=== PATIENT | male | born 1945 | race Caucasian/White ===

== ENCOUNTER 2020-01-02 01:47 | Inpatient (IN) | payer OTHER, MEDICARE ==
[2020-01-02] MEDS ORDERED: SODIUM CHLORIDE 0.9% 1,000 ML IV STA (01:53)
--- NOTE | 2020-01-02 01:56 | ED ---
Neuro HPI - General Stated Complaint: possible stroke Time Seen by Provider: 01/02/20 01:49 - History of Present Illness Is the patient presenting with stroke symptoms?: Yes Last Known Well Date: 01/01/20 Last Known Well Time: 12:00 Onset/Timin -: hour(s) Initial Comments: Maycol 74-year-old male with history of hypertension hyperlipidemia who presents the ER today via private vehicle for evaluation of a possible stroke. History is obtained from the patient and his . They report that around noon yesterday the patient began having some weakness in his left arm and leg, these symptoms seem to come and go throughout the afternoon. He got worse at 4:30 PM but then resolved again. Patient with to bed with minimum symptoms but woke up around 1 AM with weakness of his left arm and leg and having difficulty speaking. His noted he had some facial droop they were concerned he had a stroke so they brought him to the ER for evaluation. - Related Data Allergies/Adverse Reactions: Allergies Allergy/AdvReac Type Severity Reaction Status Date / Time No Known Allergies Allergy Verified 01/02/20 02:06 Review of Systems ROS Statement: Those systems with pertinent positive or pertinent negative responses have been documented in the HPI. ROS Other: All systems not noted in ROS Statement are negative. General Exam - General Exam Comments Initial Comments: Physical Exam GENERAL: Elderly gentleman appears to have had a stroke HENT: Normocephalic, Atraumatic. LEFT FACIAL DROOP EYES: PERRL, EOMI PULMONARY: Unlabored respirations. No audible rales rhonchi or wheezing was noted. CARDIOVASCULAR: Bradycardia, regular ABDOMEN: Soft and nontender with normal bowel sounds. SKIN: Skin is clear with no lesions or rashes and otherwise unremarkable. : Deferred NEUROLOGIC: Patient is alert and oriented x3 LEFT FACIAL DROOP LEFT ARM AND LEG WEAKNESS DYSARTHRIA MUSCULOSKELETAL: Weakness of left arm and leg No injury PSYCHIATRIC: Appropriate situational anxiety Stroke MDM - Lab Data Result diagrams: 01/02/20 02:01 01/02/20 02:01 Lab Results 01/02/20 01/02/20 01/02/20 Range/Units 02:01 02:01 02:01 WBC 9.3 (3.8-10.6) k/uL RBC 4.88 (4.30-5.90) m/uL Hgb 14.1 (13.0-17.5) gm/dL Hct 42.5 (39.0-53.0) % MCV 87.1 (80.0-100.0) fL MCH 28.9 (25.0-35.0) pg MCHC 33.2 (31.0-37.0) g/dL RDW 13.2 (11.5-15.5) % Plt Count 155 (150-450) k/uL Neutrophils % 76 % Lymphocytes % 15 % Monocytes % 6 % Eosinophils % 2 % Basophils % 1 % Neutrophils # 7.0 (1.3-7.7) k/uL Lymphocytes # 1.4 (1.0-4.8) k/uL Monocytes # 0.5 (0-1.0) k/uL Eosinophils # 0.2 (0-0.7) k/uL Basophils # 0.0 (0-0.2) k/uL PT 10.2 (9.0-12.0) sec INR 1.0 (<1.2) APTT 20.8 L (22.0-30.0) sec Sodium 139 (137-145) mmol/L Potassium 3.8 (3.5-5.1) mmol/L Chloride 106 (98-107) mmol/L Carbon Dioxide 26 (22-30) mmol/L Anion Gap 7 mmol/L BUN 10 (9-20) mg/dL Creatinine 0.81 (0.66-1.25) mg/dL Est GFR (CKD-EPI)AfAm >90 (>60 ml/min/1.73 sqM) Est GFR (CKD-EPI)NonAf 88 (>60 ml/min/1.73 sqM) Glucose 179 H (74-99) mg/dL Calcium 8.9 (8.4-10.2) mg/dL Total Bilirubin 0.8 (0.2-1.3) mg/dL AST 33 (17-59) U/L ALT 20 (4-49) U/L Alkaline Phosphatase 73 (38-126) U/L Troponin I (0.000-0.034) ng/mL Total Protein 7.4 (6.3-8.2) g/dL Albumin 4.4 (3.5-5.0) g/dL 01/02/20 Range/Units 02:01 WBC (3.8-10.6) k/uL RBC (4.30-5.90) m/uL Hgb (13.0-17.5) gm/dL Hct (39.0-53.0) % MCV (80.0-100.0) fL MCH (25.0-35.0) pg MCHC (31.0-37.0) g/dL RDW (11.5-15.5) % Plt Count (150-450) k/uL Neutrophils % % Lymphocytes % % Monocytes % % Eosinophils % % Basophils % % Neutrophils # (1.3-7.7) k/uL Lymphocytes # (1.0-4.8) k/uL Monocytes # (0-1.0) k/uL Eosinophils # (0-0.7) k/uL Basophils # (0-0.2) k/uL PT (9.0-12.0) sec INR (<1.2) APTT (22.0-30.0) sec Sodium (137-145) mmol/L Potassium (3.5-5.1) mmol/L Chloride (98-107) mmol/L Carbon Dioxide (22-30) mmol/L Anion Gap mmol/L BUN (9-20) mg/dL Creatinine (0.66-1.25) mg/dL Est GFR (CKD-EPI)AfAm (>60 ml/min/1.73 sqM) Est GFR (CKD-EPI)NonAf (>60 ml/min/1.73 sqM) Glucose (74-99) mg/dL Calcium (8.4-10.2) mg/dL Total Bilirubin (0.2-1.3) mg/dL AST (17-59) U/L ALT (4-49) U/L Alkaline Phosphatase (38-126) U/L Troponin I <0.012 (0.000-0.034) ng/mL Total Protein (6.3-8.2) g/dL Albumin (3.5-5.0) g/dL - NIH Stroke Scale 1a. Level of Consciousness: (0) alert 1b. LOC Questions: (0) answers correctly 1c. LOC Commands: (0) performs tasks correctly 2. Best Gaze: (0) normal 3. Visual: (0) no visual loss 4. Facial Palsy: (2) partial paralysis 5a. Motor Arm Left: (2) some gravity effort 5b. Motor Arm Right: (0) no drift 6a. Motor Leg Left: (2) some gravity effort 6b. Motor Leg Right: (0) no drift 7. Limb Ataxia: (0) absent 8. Sensory: (1) mild/moderate sensory loss 9. Best Language: (0) no aphasia 10. Dysarthria: (1) mild/moderate dysarthria 11. Extinction/Inattention: (0) no abnormality - Thrombolytic Inclusion/Exclusion Thrombolytic Exclusion Criteria: Symptom Onset > 4.5 Hours - Medical Decision Making CODE STROKE - NOT IN TPA WINDOW NIH 8 labs and EKG obtained Patient to computed tomography scan Patient care discussed with interventional neurology Dr. Merino will review CT and CTA Dr Merino back stated that he reviewed the CT and CTA there is no large vessel occlusions or indication for intervention. Patient is out of the window for TPA. He recommends aspirin Plavix Lipitor, patient will need an MRI, echo and neurology follow-up. Considering the hospital does not have neurology licensed massage practitioner this week I did attempt to transfer the patient to [facility] however was called back again by Dr. Angelique win that this patient does not require neuro evaluation emergently, con sidering that this is a pandemic time patient does not need to be transferred. Patient to be admitted to internal medicine with outpatient neurology follow-up. Course Vital Signs 01/02/20 01/02/20 01/02/20 02:00 02:15 02:45 Temperature 97.3 F L Pulse Rate 49 L 53 L 58 L Respiratory 16 16 16 Rate Blood Pressure 200/100 182/88 193/102 O2 Sat by Pulse 98 95 96 Oximetry 01/02/20 03:00 Temperature Pulse Rate 55 L Respiratory 16 Rate Blood Pressure 182/87 O2 Sat by Pulse 94 L Oximetry Critical Care Time Critical Care Time: Yes Total Critical Care Time: 30 Critical Care Time: Critical Care Time 30 Critical care time was exclusive of separately billable procedures and treating other patients and teaching time. Critical care was necessary to treat or prevent imminent or life-threatening deterioration. Given the critical condition in which the patient arrived, the patient was immediately assessed by myself and the nurse, and cardiac monitoring initiated due to the potential for rapid decompensation of the patient's clinical condition. During the course of the patients stay, I spent a considerable amount of time at the bedside performing serial re-evaluations of the patient's hemodynamic and clinical status because of the recognized potential threat to life or limb in this condition. I then had a chance to review not only all of the available current laboratory and radiographic studies obtained today, but I also reviewed old records available to me at the time. Additionally, any ancillary information available including land manager records were reviewed. Sequential vital signs were obtained. Disposition Clinical Impression: Cerebrovascular accident (CVA), HTN (hypertension) Disposition: OTHER INSTITUTION NOT DEFINED Condition: Serious Is patient prescribed a controlled substance at d/c from ED?: No
[2020-01-02 02:15] LABS: Basophils % (A) 1 %; Eosinophils # (A) 0.2 k/uL (0-0.7); Eosinophils % (A) 2 %; HCT 42.5 % (39.0-53.0); HGB 14.1 gm/dL (13.0-17.5); Lymphocytes # (A) 1.4 k/uL (1.0-4.8); Lymphocytes % (A) 15 %; MCH 28.9 pg (25.0-35.0); MCHC 33.2 g/dL (31.0-37.0); MCV 87.1 fL (80.0-100.0); Mean Platelet Volume 7.6; Monocytes # (A) 0.5 k/uL (0-1.0); Monocytes % (A) 6 %; Neutrophils % (A) 76 %; Platelet Count 155 k/uL (150-450); RBC 4.88 m/uL (4.30-5.90); RDW 13.2 % (11.5-15.5); WBC 9.3 k/uL (3.8-10.6)
[2020-01-02 02:19] LABS: ALT 20 U/L (4-49); AST 33 U/L (17-59); African American GFR (CKD) >90 (>60 ml/min/1.73 sqM); Albumin 4.4 g/dL (3.5-5.0); Alkaline Phosphatase 73 U/L (38-126); Anion Gap 7 mmol/L; Blood Urea Nitrogen 10 mg/dL (9-20); Calcium 8.9 mg/dL (8.4-10.2); Carbon Dioxide 26 mmol/L (22-30); Chloride 106 mmol/L (98-107); Glucose 179 mg/dL (74-99); Non-African American GFR(CKD) 88 (>60 ml/min/1.73 sqM); Potassium 3.8 mmol/L (3.5-5.1); Sodium 139 mmol/L (137-145); Total Bilirubin 0.8 mg/dL (0.2-1.3); Total Protein 7.4 g/dL (6.3-8.2)
[2020-01-02] MEDS ORDERED: ASPIRIN 81 MG PO STA (02:21)
[2020-01-02] MEDS ORDERED: CLOPIDOGREL 75 MG TAB PO STA ×2 (02:22→12:59)
[2020-01-02] MEDS ORDERED: ATORVASTATIN 80 MG TAB PO STA (02:22)
[2020-01-02 02:27] LABS: Prothrombin Time 10.2 sec (9.0-12.0)
[2020-01-02 02:33] LABS: Partial Thromboplastin Time 20.8 sec (22.0-30.0)
--- NOTE | 2020-01-02 02:35 | CT ---
EXAM: CT Head Without Intravenous Contrast CLINICAL HISTORY: ITS.REASON CT Reason: Neuro deficit, acute, stroke suspected TECHNIQUE: Axial computed tomography images of the head/brain without intravenous contrast. CTDI is 48.8 mGy and DLP is 1118 mGy-cm. This CT exam was performed using one or more of the following dose reduction techniques: automated exposure control, adjustment of the mA and/or kV according to patient size, and/or use of iterative reconstruction technique. COMPARISON: No relevant prior studies available. FINDINGS: Brain: No hemorrhage or mass effect. Ventricles: No hydrocephalus. Bones/joints: Unremarkable. Soft tissues: Unremarkable. Sinuses: Unremarkable. Mastoid air cells: Clear. IMPRESSION: No acute hemorrhage, hydrocephalus, or mass effect. No large infarct.
--- NOTE | 2020-01-02 02:35 | CT ---
EXAM: CT Angiography Head With Intravenous Contrast CLINICAL HISTORY: ITS.REASON CT Reason: Neuro deficit, acute, stroke suspected TECHNIQUE: Axial computed tomographic angiography images of the head with intravenous contrast. CTDI is 18.685 mGy and DLP is 205.15 mGy-cm. This CT exam was performed using one or more of the following dose reduction techniques: automated exposure control, adjustment of the mA and/or kV according to patient size, and/or use of iterative reconstruction technique. MIP reconstructed images were created and reviewed. COMPARISON: CT head 01/01/2001 FINDINGS: Right internal carotid artery: Intracranial segment is patent with no significant stenosis. No aneurysm. Right anterior cerebral artery: No occlusion or significant stenosis. No aneurysm. Right middle cerebral artery: No occlusion or significant stenosis. No aneurysm. Right posterior cerebral artery: Moderate proximal stenosis. No aneurysm. Right vertebral artery: Unremarkable. Left internal carotid artery: Intracranial segment is patent with no significant stenosis. No aneurysm. Left anterior cerebral artery: No occlusion or significant stenosis. No aneurysm. Left middle cerebral artery: No occlusion or significant stenosis. No aneurysm. Left posterior cerebral artery: Moderate proximal stenosis. No aneurysm. Left vertebral artery: Unremarkable. Basilar artery: No occlusion or significant stenosis. No aneurysm. IMPRESSION: Moderate bilateral proximal [employer] INTERN stenosis. EXAM: CT Angiography Neck With Intravenous Contrast CLINICAL HISTORY: ITS.REASON CT Reason: Neuro deficit, acute, stroke suspected TECHNIQUE: Axial computed tomographic angiography images of the neck with intravenous contrast. CTDI is 18.685 mGy and DLP is 205.15 mGy-cm. This CT exam was performed using one or more of the following dose reduction techniques: automated exposure control, adjustment of the mA and/or kV according to patient size, and/or use of iterative reconstruction technique. MIP reconstructed images were created and reviewed. COMPARISON: No relevant prior studies available. FINDINGS: VASCULATURE: Right common carotid artery: No significant stenosis. No dissection. Right internal carotid artery: Extracranial has no significant stenosis. No dissection. Right vertebral artery: No significant stenosis. No dissection. Left common carotid artery: No significant stenosis. No dissection. Left internal carotid artery: Mild narrowing of the left proximal ICA from atherosclerosis. No dissection. Left vertebral artery: No significant stenosis. No dissection. NECK: Bones/joints: No acute fracture. No dislocation. Subcentimeter nodule in the left thyroid gland. CAROTID STENOSIS REFERENCE USING NASCET CRITERIA: % ICA stenosis = (1 - narrowest ICA diameter/diameter of distal cervical ICA) x 100. Mild - <50% stenosis. Moderate - 50-69% stenosis. Severe - 70-94% stenosis. Near occlusion - 95-99% stenosis. Occluded - 100% stenosis. IMPRESSION: Mild narrowing of the left proximal ICA from atherosclerosis. Subcentimeter nodule in the left thyroid gland.
--- NOTE | 2020-01-02 02:51 | XR ---
EXAM: XR Chest, 1 View CLINICAL HISTORY: ITS.REASON XR Reason: altered mental status TECHNIQUE: Frontal view of the chest. COMPARISON: No relevant prior studies available. FINDINGS: Lungs: Slight left basilar opacity. Pleural space: No acute findings Heart: No cardiomegaly. Bones/joints: No acute findings. IMPRESSION: Slight left basilar opacity.
[2020-01-02] MEDS ORDERED: ASPIRIN 325 MG TAB PO STA (03:15)
[2020-01-02] MEDS ORDERED: ENALAPRILAT 1.25 MG/ML 1 ML VIAL IVP STA (04:02)
--- NOTE | 2020-01-02 09:24 | P.HPIM ---
History of Present Illness This is a pleasant 74 days old male with no significant past medical history, he follows up with Dr. [facility] or feel, that happened yesterday in the afternoon when he had a sudden slurred speech and inability to use his left hand around 4243, it seems to get better as he was going back to home but it happened to him again around 6:54 PM with weakness in his left upper and lower extremities with no associated headache or abnormal movements. Patient was gradually improving and currently he has no weakness in his left hand except for some tingling in his left fingers and his strength is left leg is almost resolved with very minimal subjective feeling of weakness in the left leg. Patient denies smoking, alcohol or illicit drugs Vitals showing elevated blood pressure 178/87 with bradycardia heart rate 52-56. He saturating 97% on room air and his been afebrile. Troponin is negative at less than 0.012. TSH is normal 2.1 EKG: Showed sinus bradycardia at [address]PM with no significant [address]-T changes and QTC is 448.. Chest x-ray: Slight left basilar opacity per radiologist CT of the brain: No acute process per Radiologist. CTA of the head and neck, mild bowing of the left proximal ICA and subcentimeter nodule of the left thyroid gland In the emergency room, patient received aspirin and Lipitor and Plavix. Also received some IV fluids. Neurologist has been consulted Review of Systems CONSTITUTIONAL: No fever, no malaise, no fatigue. HEENT: No recent visual problems or hearing problems. Denied any sore throat. CARDIOVASCULAR: No orthopnea, PND, no palpitations, no syncope. PULMONARY: No shortness of breath, no cough, no hemoptysis. GASTROINTESTINAL: No diarrhea, no nausea, no vomiting, no abdominal pain. Normoactive bowel sounds. NEUROLOGICAL: No headaches, no dizziness. HEMATOLOGICAL: Denies any bleeding or petechiae. GENITOURINARY: Denies any burning micturition, frequency, or urgency. MUSCULOSKELETAL/RHEUMATOLOGICAL: Denies any joint pain, swelling, or any muscle pain. ENDOCRINE: Denies any polyuria or polydipsia. Past Medical History Past Medical History: No Reported History History of Any Multi-Drug Resistant Organisms: None Reported Past Surgical History: No Surgical Hx Reported Past Psychological History: No Psychological Hx Reported Smoking Status: Former smoker Past Alcohol Use History: Rare Past Drug Use History: None Reported Medications and Allergies Home Medications Medication Instructions Recorded Confirmed Type Aspirin EC [Ecotrin Low Dose] 81 mg PO DAILY 01/02/20 01/02/20 History Carboxymethylcellulose Sodium 1 drop BOTH EYES QID PRN 01/02/20 01/02/20 History [Refresh Tears] Cholecalciferol [Vitamin D3 (25 1,000 unit PO DAILY 01/02/20 01/02/20 History Mcg = 1000 Iu)] Omeprazole 20 mg PO DAILY 01/02/20 01/02/20 History lisinopriL [Zestril] 5 mg PO DAILY 01/02/20 01/02/20 History Allergies Allergy/AdvReac Type Severity Reaction Status Date / Time No Known Allergies Allergy Verified 01/02/20 07:54 Physical Exam Vitals: Vital Signs Temp Pulse Resp BP Pulse Ox 01/02/20 06:35 97.6 F 56 L 16 178/87 97 01/02/20 06:18 98.4 F 59 L 16 176/84 98 01/02/20 05:18 98.2 F 58 L 16 185/99 96 01/02/20 04:18 52 L 16 173/102 97 01/02/20 03:18 54 L 16 185/90 96 01/02/20 03:00 55 L 16 182/87 94 L 01/02/20 02:45 58 L 16 193/102 96 01/02/20 02:15 53 L 16 182/88 95 01/02/20 02:00 97.3 F L 49 L 16 200/100 98 Intake and Output 01/01/20 01/02/20 01/02/20 22:59 06:59 14:59 Other: Weight 89 kg GENERAL: The patient is alert and oriented x3, not in any acute distress. Well developed, well nourished. HEENT: Pupils are round and equally reacting to light. EOMI. No scleral icterus. No conjunctival pallor. Normocephalic, atraumatic. No pharyngeal erythema. No thyromegaly. CARDIOVASCULAR: S1 and S2 present. No murmurs, rubs, or gallops. PULMONARY: Chest is clear to auscultation, no wheezing or crackles. ABDOMEN: Soft, nontender, nondistended, normoactive bowel sounds. No palpable organomegaly. MUSCULOSKELETAL: No joint swelling or deformity. EXTREMITIES: No cyanosis, clubbing, or pedal edema. -NEUROLOGICAL: Gross neurological examination cranial nerves are grossly intact. Motor is 5/5 in all extremities except for left upper extremity and is about 4+/5. Sensation is intact. Meningeal signs are absent SKIN: No rashes. No petechiae Results CBC & Chem 7: 01/02/20 02:01 01/02/20 02:01 Labs: Abnormal Lab Results - Last 24 Hours (Table) 01/02/20 01/02/20 Range/Units 02:01 02:01 APTT 20.8 L (22.0-30.0) sec Glucose 179 H (74-99) mg/dL Assessment and Plan Assessment: Left-sided weakness and facial droop suspicious for stroke versus TIA Permissive hypertension Plan: This is a pleasant 74 years old male who presents with possible stroke. Continue with antiplatelet therapy. Follow-up recommendation by neurologist. We'll check for PT/OT and speech evaluation. Labs and medication were reviewed.. Continue same treatment. Continue with symptomatic treatment. Resume home medication. Monitor lytes and vitals. DVT and GI prophylaxis. Further recommendations depends on the clinical course of the patient DVT prophylaxis: Subcutaneous heparin GI Prophylaxis: Pepcid PT/OT: Pending Prognosis is guarded
[2020-01-02] MEDS: ATORVASTATIN 40 MG TAB PO SCH (10:39)
[2020-01-02] MEDS: CLOPIDOGREL 75 MG TAB PO SCH ×2 (10:40→10:41)
[2020-01-02] MEDS: lisinopriL 5 MG TAB PO SCH (10:40)
--- NOTE | 2020-01-02 11:00 | ECHOF ---
Referral Reason:Thrombus - code stroke MEASUREMENTS -------- HEIGHT: 172.7 cm WEIGHT: 88.9 kg BP: IVSd: 0.9 cm (0.6 - 1.1) LVIDd: 5.1 cm (3.9 - 5.3) LVPWd: 1.2 cm (0.6 - 1.1) IVSs: 1.5 cm LVIDs: 2.9 cm LVPWs: 1.5 cm LA Diam: 4.0 cm (2.7 - 3.8) RVIDd: 2.5 cm (< 3.3) LAESV Index (A-L): 27.66 ml/m Ao Diam: 3.4 cm (2.0 - 3.7) LA Diam: 4.4 cm (2.7 - 3.8) AV Cusp: 2.0 cm (1.5 - 2.6) EPSS: 0.5 cm MV E Pete: 0.68 m/s MV DecT: 220 ms MV A Pete: 1.04 m/s MV E/A Ratio: 0.66 RAP: 5.00 mmHg RVSP: 24.79 mmHg MV EF SLOPE: 101.87 mm/s (70 - 150) MV EXCURSION: 23.95 mm (> 18.000) FINDINGS -------- Sinus rhythm. This was a technically good study. LV size, wall thickness and systolic function are normal, with an EF greater than 55%. The left eric tricular size is normal. The right ventricle is normal in size. The left atrial size is normal. The right atrial size is normal. The aortic valve is trileaflet, and appears structurally normal. No aortic stenosis or regurgitation. Mild mitral regurgitation is present. Mild tricuspid regurgitation present. Right ventricular systolic pressure is normal at < 35 mmHg. There is no pulmonic regurgitation present. The aortic root size is normal. There is no pericardial effusion. CONCLUSIONS -------- 1. LV size, wall thickness and systolic function are normal, with an EF greater than 55%. 2. The left ventricular size is normal. 3. The right ventricle is normal in size. 4. The left atrial size is normal. 5. The right atrial size is normal. 6. Mild mitral regurgitation is present. 7. Mild tricuspid regurgitation present. 8. There is no pulmonic regurgitation present. 9. The aortic root size is normal. 10. There is no pericardial effusion. INVESTOR RELATIONS DIRECTOR: April Morales RDCS
--- NOTE | 2020-01-02 13:32 | P.CNNES ---
History of Present Illness Consult date: 01/02/20 Requesting physician: Soledad Garcia Reason for Consult: Stroke code History of Present Illness: Patient is a 74-year-old right-handed male came to the hospital early this morning at around 2 AM for recurrent episodes of left hemiparesis. Patient states that his symptoms started yesterday at 4:30 PM, when he suddenly could not raise his left arm and could not form words. The symptoms would come and go, occurred about 3 times. He stayed home thinking that symptoms will go away. At 11:30 PM it came back as symptoms persisted therefore he came to the ER and arrived here at 2 AM. Vital signs on arrival was blood pressure 200/100, pulse rate 49 temperature 97.3 most recent blood pressure is 178/87. Computed tomography scan of head is negative. CTA of the head showed moderate bilateral proximal FORM [employer] P[employer]ER stenosis. CTA of the neck showed mild narrowing of the left proximal ICA from atherosclerosis. Subcentimeter nodule in the left thyroid gland. Chest x-ray showed slight left basilar opacity. EKG shows sinus bradycardia. CBC, PT/PTT and Chem-7 are normal. Hepatic panel normal. ED staff discuss with neuro intervention Dr. Thorne, who felt patient was out of the window for TPA because symptoms have been present since 4:30 PM. He was not a candidate for any intervention. Patient was recommended aspirin and Plavix Lipitor MRI, echo and a neurology evaluation. Patient does take lisinopril 5 mg, aspirin 81 mg, vitamin D and omeprazole 20 mg at home. Patient's is states that he takes aspirin 81 mg daily and is compliant with it. Patient has smoked 1-1-1/2 pack per day for 10 years, quit 40 years ago. He denies diabetes. He has hypertension for 2-3 years. Review of Systems Denies headache problem with the vision, hoarseness sore throat dysphagia. He is having slurred speech. Denies abdominal pain, nausea vomiting diarrhea. Denies shortness of breath. Denies dysuria or burning urine. Denies problem with control of bowels or bladder. Past Medical History Past Medical History: No Reported History History of Any Multi-Drug Resistant Organisms: None Reported Past Surgical History: No Surgical Hx Reported Past Psychological History: No Psychological Hx Reported Smoking Status: Former smoker Past Alcohol Use History: Rare Past Drug Use History: None Reported Medications and Allergies Home Medications Medication Instructions Recorded Confirmed Type Aspirin EC [Ecotrin Low Dose] 81 mg PO DAILY 01/02/20 01/02/20 History Carboxymethylcellulose Sodium 1 drop BOTH EYES QID PRN 01/02/20 01/02/20 History [Refresh Tears] Cholecalciferol [Vitamin D3 (25 1,000 unit PO DAILY 01/02/20 01/02/20 History Mcg = 1000 Iu)] Omeprazole 20 mg PO DAILY 01/02/20 01/02/20 History lisinopriL [Zestril] 5 mg PO DAILY 01/02/20 01/02/20 History Allergies Allergy/AdvReac Type Severity Reaction Status Date / Time No Known Allergies Allergy Verified 01/02/20 07:54 Physical Examination - Vital Signs Vital Signs: Vital Signs Temp Pulse Resp BP Pulse Ox 01/02/20 06:35 97.6 F 56 L 16 178/87 97 01/02/20 06:18 98.4 F 59 L 16 176/84 98 01/02/20 05:18 98.2 F 58 L 16 185/99 96 01/02/20 04:18 52 L 16 173/102 97 01/02/20 03:18 54 L 16 185/90 96 01/02/20 03:00 55 L 16 182/87 94 L 01/02/20 02:45 58 L 16 193/102 96 01/02/20 02:15 53 L 16 182/88 95 01/02/20 02:00 97.3 F L 49 L 16 200/100 98 Intake and Output 01/01/20 01/02/20 01/02/20 22:59 06:59 14:59 Other: Weight 89 kg On examination patient is an elderly male, very pleasant in no acute distress. Patient is alert and awake fully oriented speech is moderately dysarthric but no aphasia. Attention and concentration fund of knowledge is adequate. On cranial nerve examination pupils are round and reacting to light, visual poole are full on confrontation, extraocular muscles are intact with no nystagmus. Patient has mild left facial weakness. Tongue protrudes to the midline. Palatal elevation and sensation normal. Hearing and shoulder shrug normal. Facial sensation normal on muscle strength testing patient has moderate left pronator drift, but does not hit the bed. The strength is normal in the right arm and right leg. 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 In the lower limbs hip flexion 5-, knee extension ankles normal. Sensory to touch and temperature is normal bilaterally. No neglect. Patient is mildly ataxic for [id number] and [id number] testing on the left. Tone and bulk of muscles normal. Reflexes are 1+ and plantar is upgoing on the left. Gait deferred. There is no obvious bruit, S1 and S2 audible, peripheral pulses present. Chest is clear, abdomen is soft nontender. As I had completed the examination and discussion with the patient about the plan, patient apparently repositioned himself, and informed that left side has improved. I reexamined, and agreed, that the speech was less slurred, left facial droop was much improved, left streetcar operator was 5-, and much less pronator drift on the left side. Results - Laboratory Findings CBC and BMP: 01/02/20 02:01 01/02/20 02:01 Abnormal Lab Findings: Abnormal Labs 01/02/20 01/02/20 02:01 02:01 APTT 20.8 L Glucose 179 H Assessment and Plan Assessment: * Acute recurrent left hemiparesis with fluctuating motor weakness. Patient in fact had fluctuating severity of left hemiparesis noted by myself on examination. Symptoms suggestive of possible ischemia in right internal capsule from small vessel disease. * Hypertension * X tobacco use Plan: * Patient is having recurrent left hemiparesis. He was quite weak initially but improved in front of me. With fluctuating symptoms, will give full loading dose of Plavix. He has already received Plavix 75 mg early this morning. We will give 3 more tablets to make it 300 mg today. * Start IV fluids normal saline at 75 mL per hour. * Await MRI of the brain. * Permissive hypertension for 24-48 hours. * 2-D echo shows EF > 55%. Normal left ventricular size and left atrial size. * Continue neuro checks.
[2020-01-02] MEDS ORDERED: FAMOTIDINE 20 MG/2 ML VIAL IV SCH (21:00)
[2020-01-02] MEDS: HEPARIN SODIUM,PORCINE 5,000 UNIT/ML 1 ML VIAL SQ SCH (22:02)
[2020-01-02] MEDS: FAMOTIDINE 20 MG TAB PO SCH (22:02)
[2020-01-03] MEDS: lisinopriL 5 MG TAB PO SCH (08:41)
[2020-01-03] MEDS: ATORVASTATIN 40 MG TAB PO SCH (08:43)
[2020-01-03] MEDS: CLOPIDOGREL 75 MG TAB PO SCH (08:44)
[2020-01-03] MEDS: HEPARIN SODIUM,PORCINE 5,000 UNIT/ML 1 ML VIAL SQ SCH ×2 (08:45→21:28)
[2020-01-03] MEDS: FAMOTIDINE 20 MG TAB PO SCH ×2 (08:45→21:28)
[2020-01-03 09:14] LABS: Cholesterol 172 mg/dL (<200); HDL Cholesterol 36 mg/dL (40-60); LDL Cholesterol,Calculated 119 mg/dL (0-99); Triglycerides 87 mg/dL (<150)
--- NOTE | 2020-01-03 10:27 | MR ---
MR brain without contrast HISTORY: Neuro deficit, acute stroke suspected Multiplanar multisequence imaging through the brain. Correlation CT brain 01/02/2020 Focus of restricted diffusion is present within the antonio, anterior posterior band-like signal is pres ent slightly to the right of midline. There is corresponding hyperintensity and inversion recovery T2 -weighted sequences, additional hyperintensities present within the antonio, periventricular and subcort ical white matter. Approximately 20 scattered foci are present in the deep white matter, the largest in the right frontal lobe measures 1 cm on axial image 15. There are normal vascular flow voids. Cere bellopontine angles, corpus callosum, cervical medullary junction are within normal limits. Pituitary gland is normal. Mild mucosal disease present within the ethmoid air cells. Cortical atrophy is note d. Orbits show symmetric appearance. IMPRESSION: Subacute infarct within the antonio. 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 Mild sinus disease.
--- NOTE | 2020-01-03 11:52 | P.PN ---
Subjective Progress Note Date: 01/03/20 Patient was seen for a follow-up. All symptoms have resolved. Patient feels back to baseline. Patient just complains of mild headache. No new focal symptoms. Objective - Vital Signs Vital signs: Vital Signs Temp 97.8 F 01/03/20 10:20 Pulse 49 L 01/03/20 10:20 Resp 18 01/03/20 10:20 BP 202/91 01/03/20 10:20 Pulse Ox 96 01/03/20 10:20 Intake & Output 01/02/20 01/03/20 01/03/20 18:59 06:59 18:59 Intake Total 200 480 Balance 200 480 Weight 86.4 kg Intake: Oral 200 480 Other: Voiding Method Toilet Urinal # Voids 1 1 1 - Exam On examination patient's mental status, speech and language functions are normal. No aphasia or dysarthria. Cranial examination revealed normal pupils, visual poole, facial symmetry, and tongue protrusion. No pronator drift and the strength is normal in the arms and legs. No ataxia. No sensory loss, no neglect. - Labs CBC & Chem 7: 01/02/20 02:01 01/02/20 02:01 Labs: Abnormal Lab Results - Last 24 Hours (Table) 01/03/20 Range/Units 08:13 LDL Cholesterol, Calc 119 H (0-99) mg/dL HDL Cholesterol 36 L (40-60) mg/dL Assessment and Plan Assessment: * Acute recurrent left hemiparesis with fluctuating motor weakness. MRI of the brain revealed subacute infarct in the right side of the antonio, likely from small vessel disease. NIHSS 0 * Hypertension * Dyslipidemia * X tobacco use Plan: * Continue dual antiplatelet medications for 3 weeks, then maintain on single agent Plavix 75 mg daily. 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 * May start controlling blood pressure gradually. * 2-D echo shows EF > 55%. Normal left ventricular size and left atrial size. * Telemetry monitoring showing sinus rhythm with sinus bradycardia. * Lipid panel showed total cholesterol 172, LDL 119, HDL 36 and triglycerides 87. Agree with Lipitor 40 mg daily. * Hemoglobin A1c pending. Addendum: Received a call at 1:43 PM for patient having recurrence of symptoms on the left side. Blood pressure was 170/80, speech was more slurred. Patient has received Plavix 75 mg and aspirin 81 mg today. Recommended to give 3 more baby aspirins, to make a full aspirin today. We'll hold blood pressure medications. CT head to rule out any bleed.
[2020-01-03] MEDS: ASPIRIN 81 MG PO SCH (12:05)
[2020-01-03] MEDS ORDERED: ASPIRIN 81 MG PO STA (14:05)
--- NOTE | 2020-01-03 15:55 | CT ---
EXAMINATION TYPE: CT brain wo con DATE OF EXAM: 01/03/2020 COMPARISON: 01/02/2020 HISTORY: dizziness and headache CT DLP: [address] of the brain was performed. The ventricles, basal cisterns and sulci overlying the cerebral convexities demonstrate mild enlargem ent. There is no evidence for intracranial hemorrhage or sulcal effacement. There is decreased attenuation about the periventricular white matter and deep white matter of both c erebral hemispheres, compatible with chronic small vessel ischemia. Differential diagnosis does inclu de demyelination. No mass effects are seen.No midline shift. Osseous calvarium is intact. If symptoms persist consider MRI. IMPRESSION: 1. Age related atrophic and chronic small vessel ischemic change without acute intracranial process s een at this time.
--- NOTE | 2020-01-03 18:09 | P.PN ---
Subjective This is a pleasant 74 days old male with no significant past medical history, he follows up with [facility]. [facility], that happened yesterday in the afternoon when he had a sudden slurred speech and inability to use his left hand around 4243, it seems to get better as he was going back to home but it happened to him again around 6:54 PM with weakness in his left upper and lower extremities with no associated headache or abnormal movements. Patient was gradually improving and currently he has no weakness in his left hand except for some tingling in his left fingers and his strength is left leg is almost resolved with very minimal subjective feeling of weakness in the left leg. Patient denies smoking, alcohol or illicit drugs Vitals showing elevated blood pressure 178/87 with bradycardia heart rate 52-56. He saturating 97% on room air and his been afebrile. Troponin is negative at less than 0.012. TSH is normal 2.1 EKG: Showed sinus bradycardia at 50 BPM with no significant [address]-T changes and QTC is 448.. Chest x-ray: Slight left basilar opacity per radiologist CT of the brain: No acute process per Radiologist. CTA of the head and neck, mild bowing of the left proximal ICA and subcentimeter nodule of the left thyro id gland In the emergency room, patient received aspirin and Lipitor and Plavix. Also received some IV fluids. Neurologist has been consulted 01/03/2020 When I saw the patient today he was lying comfortable in bed exhibiting improvement in his left hemiparesis, he thinks in the morning that he is back to his normal strength in his extremity with no further slurred speech or facial division he was happy and excited, later on he had recurrent symptoms and a loading dose of aspirin 243 mg is provided by neurology team as well as started on aspirin 81 mg daily (first dose today so total 3-24 mg) on the top of his Plavix [address] of the brain: No acute event. Blood pressure med ications were held for permissive hypertension as well MRI of the brain:Subacute infarct within the antonio. Patient has approximately 20 scattered foci in the deep white matter, the largest in the right frontal lobe measures 1 cm. Review of Systems CONSTITUTIONAL: No fever, no malaise, no fatigue. HEENT: No recent visual problems or hearing problems. Denied any sore throat. CARDIOVASCULAR: No orthopnea, PND, no palpitations, no syncope. PULMONARY: No shortness of breath, no cough, no hemoptysis. GASTROINTESTINAL: No diarrhea, no nausea, no vomiting, no abdominal pain. Normoactive bowel sounds. -NEUROLOGICAL: Mild headaches, no dizziness. HEMATOLOGICAL: Denies any bleeding or petechiae. Active Medications Generic Name Dose Route Start Last Admin Trade Name Freq PRN Reason Stop Dose Admin Aspirin 81 mg 01/03/20 12:00 01/03/20 12:05 Aspirin 81 Mg PO 81 mg Q24H ABDULLAHI Administration Atorvastatin Calcium 40 mg 01/02/20 09:00 01/03/20 08:43 Atorvastatin 40 Mg Tab PO 40 mg DAILY ABDULLAHI Administration Clopidogrel Bisulfate 75 mg 01/02/20 09:00 01/03/20 08:44 Clopidogrel 75 Mg Tab PO 75 mg DAILY ABDULLAHI Administration Famotidine 20 mg 01/02/20 21:00 01/03/20 08:45 Famotidine 20 Mg Tab PO 20 mg Q12HR ABDULLAHI Administration Heparin Sodium (Porcine) 5,000 unit 01/02/20 21:00 01/03/20 08:45 Heparin Sodium,Porcine 5,000 Unit/Ml 1 Ml Vial SQ 5,000 unit Q12HR ABDULLAHI Administration Lisinopril 5 mg 01/02/20 10:00 01/03/20 08:41 Lisinopril 5 Mg Tab PO 5 mg DAILY ABDULLAHI Administration Objective - Vital Signs Vital signs: Vital Signs Temp 97.4 F L 01/03/20 11:46 Pulse 49 L 01/03/20 16:00 Resp 16 01/03/20 16:00 BP 188/80 01/03/20 16:00 Pulse Ox 93 L 01/03/20 11:46 Intake & Output 01/02/20 01/03/20 01/03/20 18:59 06:59 18:59 Intake Total 200 1016 Balance 200 1016 Weight 86.4 kg Intake: Oral 200 1016 Other: Voiding Method Toilet Urinal # Voids 1 1 1 - Exam GENERAL: The patient is alert and oriented x3, not in any acute distress. Well developed, well nourished. HEENT: Pupils are round and equally reacting to light. EOMI. No scleral icterus. No conjunctival pallor. Normocephalic, atraumatic. No pharyngeal erythema. No thyromegaly. CARDIOVASCULAR: S1 and S2 present. No murmurs, rubs, or gallops. PULMONARY: Chest is clear to auscultation, no wheezing or crackles. ABDOMEN: Soft, nontender, nondistended, normoactive bowel sounds. No palpable organomegaly. MUSCULOSKELETAL: No joint swelling or deformity. EXTREMITIES: No cyanosis, clubbing, or pedal edema. NEUROLOGICAL: Gross neurological examination did not reveal any focal deficits. SKIN: No rashes. no petechiae. - Labs CBC & Chem 7: 01/02/20 02:01 01/02/20 02:01 Labs: Abnormal Lab Results - Last 24 Hours (Table) 01/03/20 Range/Units 08:13 LDL Cholesterol, Calc 119 H (0-99) mg/dL HDL Cholesterol 36 L (40-60) mg/dL Assessment and Plan Assessment: Left-sided weakness and facial droop suspicious for stroke versus TIA, secondary to right subacute infarct of the antonio Permissive hypertension Plan: This is a pleasant 74 years old male who presents with possible stroke. Continue with antiplatelet therapy. Aspirin and Plavix Follow-up recommendation by neurologist. We'll check for PT/OT and speech evaluation. Labs and medication were reviewed.. Continue same treatment. Continue with symptomatic treatment. Resume home medication. Monitor lytes and vitals. DVT and GI prophylaxis. Further recommendations depends on the clinical course of the patient DVT prophylaxis: Subcutaneous heparin GI Prophylaxis: Pepcid PT/OT: Home. This patient therapy continue with regular diet Prognosis is guarded
[2020-01-03 21:58] LABS: Hemoglobin A1C 5.8 % (4.0-6.0)
[2020-01-04] MEDS: ATORVASTATIN 40 MG TAB PO SCH (08:06)
[2020-01-04] MEDS: CLOPIDOGREL 75 MG TAB PO SCH (08:06)
[2020-01-04] MEDS: FAMOTIDINE 20 MG TAB PO SCH ×2 (08:06→20:35)
[2020-01-04] MEDS: HEPARIN SODIUM,PORCINE 5,000 UNIT/ML 1 ML VIAL SQ SCH ×2 (08:07→20:35)
[2020-01-04] MEDS: lisinopriL 5 MG TAB PO SCH ×2 (08:07→12:30)
[2020-01-04 08:08] LABS: Basophils % (A) 0 %; Eosinophils # (A) 0.2 k/uL (0-0.7); Eosinophils % (A) 3 %; HCT 44.5 % (39.0-53.0); HGB 13.9 gm/dL (13.0-17.5); Lymphocytes # (A) 1.4 k/uL (1.0-4.8); Lymphocytes % (A) 24 %; MCH 27.8 pg (25.0-35.0); MCHC 31.3 g/dL (31.0-37.0); MCV 88.7 fL (80.0-100.0); Mean Platelet Volume 7.7; Monocytes # (A) 0.3 k/uL (0-1.0); Monocytes % (A) 5 %; Neutrophils # (A) 3.9 k/uL (1.3-7.7); Neutrophils % (A) 68 %; Platelet Count 146 k/uL (150-450); RBC 5.01 m/uL (4.30-5.90); RDW 13.5 % (11.5-15.5); WBC 5.8 k/uL (3.8-10.6)
[2020-01-04 08:25] LABS: African American GFR (CKD) >90 (>60 ml/min/1.73 sqM); Anion Gap 7 mmol/L; Blood Urea Nitrogen 11 mg/dL (9-20); Carbon Dioxide 28 mmol/L (22-30); Chloride 106 mmol/L (98-107); Glucose 149 mg/dL (74-99); Non-African American GFR(CKD) 86 (>60 ml/min/1.73 sqM); Potassium 3.8 mmol/L (3.5-5.1); Sodium 141 mmol/L (137-145)
[2020-01-04] MEDS: ASPIRIN 81 MG PO SCH (12:30)
--- NOTE | 2020-01-04 12:52 | P.PN ---
Subjective Progress Note Date: 01/04/20 Patient was seen for a follow-up. Patient had recurrence of symptoms yesterday at around 1:30 PM. Repeat computed tomography scan of the head showed no acute process. No bleed. All symptoms again resolved. No new focal symptoms. Objective - Vital Signs Vital signs: Vital Signs Temp 98.0 F 01/04/20 08:00 Pulse 50 L 01/04/20 12:00 Resp 16 01/04/20 12:00 BP 180/80 01/04/20 12:00 Pulse Ox 95 01/04/20 12:00 Intake & Output 01/03/20 01/04/20 01/04/20 18:59 06:59 18:59 Intake Total 1256 360 Balance 1256 360 Weight 86.5 kg Intake: Oral 1256 360 Other: Voiding Method Toilet Urinal # Voids 1 2 - Exam On examination patient's mental status, speech and language functions are normal. No aphasia, although appears has very mild dysarthria. Cranial examination revealed normal pupils, visual poole, facial symmetry, and tongue protrusion. Patient has very mild left pronation but no drift. The strength is normal in the arms and legs. No ataxia. No sensory loss, no neglect on double simultaneous stimulation. - Labs CBC & Chem 7: 01/04/20 07:52 01/04/20 07:52 Labs: Abnormal Lab Results - Last 24 Hours (Table) 01/04/20 01/04/20 Range/Units 07:52 07:52 Plt Count 146 L (150-450) k/uL Glucose 149 H (74-99) mg/dL Assessment and Plan Assessment: * Acute recurrent left hemiparesis with fluctuating motor weakness. MRI of the brain revealed subacute infarct in the right side of the antonio, likely from small vessel disease. NIHSS 1 * Hypertension * Dyslipidemia * X tobacco use Plan: * Continue dual antiplatelet medications with aspirin 162 mg and Plavix 75 mg. Patient is having recurrence of left hemiparesis concerning for stroke in evolution. 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 * May start controlling blood pressure gradually. Target blood pressure now <160/100 before discharge. * 2-D echo shows EF > 55%. Normal left ventricular size and left atrial size. * Telemetry monitoring showing sinus rhythm with sinus bradycardia. Heart rate goes down to high 30s and low 40s while asleep. Otherwise sinus bradycardia. * Lipid panel showed total cholesterol 172, LDL 119, HDL 36 and triglycerides 87. Agree with Lipitor 40 mg daily. * Hemoglobin A1c 5.8. * Follow up with PCP closely to manage blood pressure as outpatient and may follow up with neurologist in 2-4 weeks as well.
[2020-01-04] MEDS ORDERED: ASPIRIN 81 MG PO ONE (13:00)
[2020-01-04] MEDS ORDERED: ARTIFICIAL TEARS-HYPROMELLOSE DROPS 15 ML BTL BOTH EYES PRN (19:19)
[2020-01-04 23:29] VITALS: RESP 16
[2020-01-05 08:52] VITALS: TEMP 98.2
[2020-01-05] MEDS: ATORVASTATIN 40 MG TAB PO SCH (08:52)
[2020-01-05] MEDS: FAMOTIDINE 20 MG TAB PO SCH (08:52)
[2020-01-05] MEDS: CLOPIDOGREL 75 MG TAB PO SCH (08:52)
[2020-01-05] MEDS: HEPARIN SODIUM,PORCINE 5,000 UNIT/ML 1 ML VIAL SQ SCH (08:53)
[2020-01-05] MEDS: lisinopriL 5 MG TAB PO SCH (08:53)
[2020-01-05] MEDS ORDERED: ASPIRIN 81 MG PO SCH (09:00)
--- NOTE | 2020-01-05 09:41 | P.PN ---
Subjective This is a pleasant 74 days old male with no significant past medical history, he follows up with Dr. [facility] at [facility], that happened yesterday in the afternoon when he had a sudden slurred speech and inability to use his left hand around 4243, it seems to get better as he was going back to home but it happened to him again around 6:54 PM with weakness in his left upper and lower extremities with no associated headache or abnormal movements. Patient was gradually improving and currently he has no weakness in his left hand except for some tingling in his left fingers and his strength is left leg is almost resolved with very minimal subjective feeling of weakness in the left leg. Patient denies smoking, alcohol or illicit drugs Vitals showing elevated blood pressure 178/87 with bradycardia heart rate 52-56. He saturating 97% on room air and his been afebrile. Troponin is negative at less than 0.012. TSH is normal 2.1 EKG: Showed sinus bradycardia at 50 BPM with no significant ST-T changes and QTC is 448.. Chest x-ray: Slight left basilar opacity per radiologist CT of the brain: No acute process per Radiologist. CTA of the head and neck, mild bowing of the left proximal ICA and subcentimeter nodule of the left thyro id gland In the emergency room, patient received aspirin and Lipitor and Plavix. Also received some IV fluids. Neurologist has been consulted 01/03/2020 When I saw the patient today he was lying comfortable in bed exhibiting improvement in his left hemiparesis, he thinks in the morning that he is back to his normal strength in his extremity with no further slurred speech or facial division he was happy and excited, later on he had recurrent symptoms and a loading dose of aspirin 243 mg is provided by neurology team as well as started on aspirin 81 mg daily (first dose today so total 3-24 mg) on the top of his Plavix [address] of the brain: No acute event. Blood pressure med ications were held for permissive hypertension as well MRI of the brain:Subacute infarct within the antonio. Patient has approximately 20 scattered foci in the deep white matter, the largest in the right frontal lobe measures 1 cm. 01/04/2020 Patient MRI showing subacute infarct within the points. This morning his facial droop, and left-sided weakness have resolved and patient is back to normal. Yesterday he has temporal recurrent weakness in his left extremity side, he was loaded with aspirin And repeat CAT scan showed no hemorrhage. Because of that neurology service felt need to monitor patient today while in the hospital He is mildly hypertensive, we will add Norvasc. Also was bradycardic, TSH within normal limits, and call cardiology consult. Ejection fraction more than 55%, no significant valvular disease Objective - Vital Signs Vital signs: Vital Signs Temp 98.0 F 01/04/20 08:00 Pulse 50 L 01/04/20 12:00 Resp 16 01/04/20 12:00 BP 180/80 01/04/20 12:00 Pulse Ox 95 01/04/20 12:00 Intake & Output 01/03/20 01/04/20 01/04/20 18:59 06:59 18:59 Intake Total 1256 710 Balance 1256 710 Weight 86.5 kg Intake: Oral 1256 710 Other: Voiding Method Toilet Urinal # Voids 1 2 - Exam GENERAL: The patient is alert and oriented x3, not in any acute distress. Well developed, well nourished. HEENT: Pupils are round and equally reacting to light. EOMI. No scleral icterus. No conjunctival pallor. Normocephalic, atraumatic. No pharyngeal erythema. No thyromegaly. CARDIOVASCULAR: S1 and S2 present. No murmurs, rubs, or gallops. PULMONARY: Chest is clear to auscultation, no wheezing or crackles. ABDOMEN: Soft, nontender, nondistended, normoactive bowel sounds. No palpable organomegaly. MUSCULOSKELETAL: No joint swelling or deformity. EXTREMITIES: No cyanosis, clubbing, or pedal edema. NEUROLOGICAL: Gross neurological examination did not reveal any focal deficits. SKIN: No rashes. no petechiae. - Labs CBC & Chem 7: 01/04/20 07:52 01/04/20 07:52 Labs: Abnormal Lab Results - Last 24 Hours (Table) 01/04/20 01/04/20 Range/Units 07:52 07:52 Plt Count 146 L (150-450) k/uL Glucose 149 H (74-99) mg/dL Assessment and Plan Assessment: Left-sided weakness and facial droop suspicious for stroke versus TIA, secondary to right subacute infarct of the antonio Essential hypertension, uncontrolled on admission Sinus bradycardia Plan: This is a pleasant 74 years old male who presents with possible stroke. Continue with antiplatelet therapy. Aspirin and Plavix Follow-up recommendation by neurologist. Consult cardiology for bradycardia continue with telemetry, add Norvasc and follow-up blood pressure Labs and medication were reviewed.. Continue same treatment. Continue with symptomatic treatment. Resume home medication. Monitor lytes and vitals. DVT and GI prophylaxis. Further recommendations depends on the clinical course of the patient DVT prophylaxis: Subcutaneous heparin GI Prophylaxis: Pepcid PT/OT: Home. This patient therapy continue with regular diet Prognosis is guarded
[2020-01-05] MEDS ORDERED: amLODIPine 5 MG TAB PO SCH (09:45)
[2020-01-05 11:43] VITALS: PULSE 56
[2020-01-05] MEDS ORDERED: lisinopriL 5 MG TAB PO STA (11:43)
--- NOTE | 2020-01-05 12:42 | P.DS ---
Providers Date of admission: 01/02/20 03:15 Attending physician: Abhishek Jenkins Consults: 01/02/20 08:26 Consult Physician Urgent Consulting Provider: Leno Mathew Consult Reason/Comments: code stroke Do you want consulting provider notified?: Yes, Notify in am 01/05/20 09:38 Consult Physician Routine Consulting Provider: Kilo Turner Consult Reason/Comments: bradycardia Do you want consulting provider notified?: Yes Primary care physician: [facility] Hospital Course: 74 days old male with no significant past medical history, he follows up with Dr. Carter at the [facility] or feel, that happened yesterday in the afternoon when he had a sudden slurred speech and inability to use his left hand around [id number], it seems to get better as he was going back to home but it happened to him again around 6:54 PM with weakness in his left upper and lower extremities with no associated headache or abnormal movements. Patient was gradually improving and currently he has no weakness in his left hand except for some tingling in his left fingers and his strength is left leg is almost resolved with very minimal subjective feeling of weakness in the left leg. Patient denies smoking, alcohol or illicit drugs Vitals showing elevated blood pressure 178/87 with bradycardia heart rate 52-56. He saturating 97% on room air and his been afebrile. Troponin is negative at less than 0.012. TSH is normal 2.1 EKG: Showed sinus bradycardia at 50 [address]PM with no significant [address]-T changes and QTC is 448.. Chest x-ray: Slight left basilar opacity per radiologist CT of the brain: No acute process per Radiologist. CTA of the head and neck, mild bowing of the left proximal ICA and subcentimeter nodule of the left thyroid gland In the emergency room, patient received aspirin and Lipitor and Plavix. Also received some IV fluids. Neurologist has been consulted 01/03/2020 When I saw the patient today he was lying comfortable in bed exhibiting improvement in his left hemiparesis, he thinks in the morning that he is back to his normal strength in his extremity with no further slurred speech or facial division he was happy and excited, later on he had recurrent symptoms and a loading dose of aspirin 243 mg is provided by neurology team as well as started on aspirin 81 mg daily (first dose today so total 3-24 mg) on the top of his Plavix [address] of the brain: No acute event. Blood pressure medications were held for permissive hypertension as well MRI of the brain:Subacute infarct within the antonio. Patient has approximately 20 scattered foci in the deep white matter, the largest in the right frontal lobe measures 1 cm. 01/04/2020 Patient MRI showing subacute infarct within the timothy. This morning his facial droop, and left-sided weakness have resolved and patient is back to normal. Yesterday he has temporal recurrent weakness in his left extremity side, he was loaded with aspirin And repeat CAT scan showed no hemorrhage. Because of that neurology service felt need to monitor patient today while in the hospital He is mildly hypertensive, we will add Norvasc. Also was bradycardic, TSH within normal limits, and call cardiology consult. Ejection fraction more than 55%, no significant valvular disease 01/04/2020 patient doesn't have any residual stroke symptoms patient is otherwise clinically doing well. Patient will be discharged todaypatient is on both aspirin as well as Plavix along with statin.increase the dose of lisinopril instead of adding Norvasc. Patient is bit bradycardic but they appear to be sinus bradycardia PHYSICAL EXAMINATION: GENERAL: The patient is alert and oriented x3, not in any acute distress. Well developed, well nourished. HEENT: Pupils are round and equally reacting to light. EOMI. No scleral icterus. No conjunctival pallor. Normocephalic, atraumatic. No pharyngeal erythema. No thyromegaly. CARDIOVASCULAR: S1 and S2 present. No murmurs, rubs, or gallops. PULMONARY: Chest is clear to auscultation, no wheezing or crackles. ABDOMEN: Soft, nontender, nondistended, normoactive bowel sounds. No palpable organomegaly. MUSCULOSKELETAL: No joint swelling or deformity. EXTREMITIES: No cyanosis, clubbing, or pedal edema. NEUROLOGICAL: Gross neurological examination did not reveal any focal deficits. SKIN: No rashes. -acute cerebrovascular vascular event ischemic stroke involving the right antonio. Posterior cerebral artery directly. -Essential hypertension uncontrolled, elevated, accelerated hypertension -Sinus bradycardia -hyperlipidemia Patient Condition at Discharge: Serious Plan - Discharge Summary Discharge Rx Participant: No New Discharge Prescriptions: New Aspirin 162 mg PO DAILY #30 chew Clopidogrel [Plavix] 75 mg PO DAILY #30 tab Atorvastatin [Lipitor] 40 mg PO DAILY #30 tab Continue Omeprazole 20 mg PO DAILY Cholecalciferol [Vitamin D3 (25 Mcg = 1000 Iu)] 1,000 unit PO DAILY Carboxymethylcellulose Sodium [Refresh Tears] 1 drop BOTH EYES QID PRN PRN Reason: Dry Eye(S) Changed lisinopriL [Zestril] 10 mg PO DAILY #0 Discontinued Aspirin EC [Ecotrin Low Dose] 81 mg PO DAILY Discharge Medication List Carboxymethylcellulose Sodium [Refresh Tears] 1 drop BOTH EYES QID PRN 01/02/20 [History] Cholecalciferol [Vitamin D3 (25 Mcg = 1000 Iu)] 1,000 unit PO DAILY 01/02/20 [History] Omeprazole 20 mg PO DAILY 01/02/20 [History] Aspirin 162 mg PO DAILY #30 chew 01/05/20 [Rx] Atorvastatin [Lipitor] 40 mg PO DAILY #30 tab 01/05/20 [Rx] Clopidogrel [Plavix] 75 mg PO DAILY #30 tab 01/05/20 [Rx] lisinopriL [Zestril] 10 mg PO DAILY #0 01/05/20 [Rx] Follow up Appointment(s)/Referral(s): [facility],Clinic [Primary Care Provider] - 1 Week (Spoke to psych coordinator. Office will call with appointment time (with Raul)) Patient Instructions/Handouts: Ischemic Stroke (DC) Discharge Disposition: HOME SELF-CARE
[2020-01-05 13:14] VITALS: BP 158/80
--- NOTE | 2020-01-05 18:21 | P.PN ---
Subjective Progress Note Date: 01/05/20 Patient was seen for a follow-up at around 9:30 AM. Patient has been stable since last 24 hours. All symptoms resolved. Patient is doing well, wants to go home. No new focal symptoms. Objective - Vital Signs Vital signs: Vital Signs Temp 98.2 F 01/05/20 08:00 Pulse 56 L 01/05/20 11:39 Resp 16 01/05/20 11:39 BP 158/80 01/05/20 13:14 Pulse Ox 95 01/05/20 11:39 Intake & Output 01/04/20 01/05/20 01/05/20 18:59 06:59 18:59 Intake Total 1450 120 Output Total 300 Balance 1450 -300 120 Weight 88.5 kg Intake: Oral 1450 120 Output: Urine 300 Other: Voiding Method Toilet Urinal # Voids 2 0 1 - Exam On examination patient's mental status, speech and language functions are normal. No aphasia, or dysarthria. Cranial examination revealed normal pupils, visual poole, facial symmetry, and tongue protrusion. Patient has very mild left pronation but no drift. The strength is normal in the arms and legs. No ataxia. No sensory loss, no neglect on double simultaneous stimulation. - Labs CBC & Chem 7: 01/04/20 07:52 01/04/20 07:52 Assessment and Plan Assessment: * Acute recurrent left hemiparesis with fluctuating motor weakness. MRI of the brain revealed subacute infarct in the right side of the antonio, likely from small vessel disease. NIHSS 0 * Hypertension * Dyslipidemia * X tobacco use Plan: * Continue dual antiplatelet medications with aspirin 162 mg and Plavix 75 mg. 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 * May start controlling blood pressure gradually. Target blood pressure now <160/100 before discharge. At present it is 140/76. * 2-D echo shows EF > 55%. Normal left ventricular size and left atrial size. * Telemetry monitoring showing sinus rhythm with sinus bradycardia. Heart rate in 40s and 50s. No A. fib. * Lipid panel showed total cholesterol 172, LDL 119, HDL 36 and triglycerides 87. Agree with Lipitor 40 mg daily. * Hemoglobin A1c 5.8. * Follow up with PCP closely to manage blood pressure as outpatient and may follow up with neurologist in 2-4 weeks as well.
== END 2020-01-05 14:04 | disposition home or self-care (01) | DRG 65 ==
LOC: EC 01:47 → 3SCARD 03:15
PROVIDERS: ADMIT Hospitalist; ATTEND Hospitalist
DX: I63.9 Cerebral infarction, unspecified (principal); G81.94 Hemiplegia, unspecified affecting left nondominant side; I10 Essential (primary) hypertension; R29.700 NIHSS score 0; I08.1 Rheumatic disorders of both mitral and tricuspid valves; R00.1 Bradycardia, unspecified; R29.810 Facial weakness; I66.29 Occlusion and stenosis of unspecified posterior cerebral artery; E78.5 Hyperlipidemia, unspecified; Z79.02 Long term (current) use of antithrombotics/antiplatelets; Z79.82 Long term (current) use of aspirin; Z79.899 Other long term (current) drug therapy; Z87.891 Personal history of nicotine dependence
CPT/HCPCS: 36415; 70450; 70496; 70498; 70551; 71045; 80048; 80053; 80061; 83036; 83721; 84443; 84484; 85025; 85610; 85730; 93005; 93306; 96361; 96374; 99291

== ENCOUNTER 2020-01-06 10:11 | Emergency (ER) | payer OTHER, MEDICARE ==
[2020-01-06] MEDS ORDERED: SODIUM CHLORIDE 0.9% 500 ML 500 ML IV STA (10:34)
--- NOTE | 2020-01-06 10:39 | ED ---
General Adult HPI - General Chief complaint: Neuro Symptoms/Deficit Stated complaint: Stroke Symptoms/revisit stroke last week Time Seen by Provider: 01/06/20 10:20 Source: patient, RN notes reviewed, old records reviewed Mode of arrival: ambulatory Limitations: no limitations - History of Present Illness Initial comments: This is a 74-year-old male who presents emergency Department who was just released yesterday afternoon after having been admitted for stroke. Patient states he had no symptoms when he left the hospital yesterday. Patient states he woke up this morning with slurred speech and inability to control his left arm. Patient states his left arm also has decreased strength. Patient denies any headache. Patient states he went to bed at 10:00 last night and was feeling completely normal. Patient denies any chest pain or palpitations. Patient denies any abdominal pain patient has nausea vomiting diarrhea. Patient denies any recent fever chills or cough. - Related Data Home Medications Medication Instructions Recorded Confirmed Carboxymethylcellulose Sodium 1 drop BOTH EYES QID PRN 01/02/20 01/06/20 [Refresh Tears] Cholecalciferol [Vitamin D3 (25 1,000 unit PO DAILY 01/02/20 01/06/20 Mcg = 1000 Iu)] Omeprazole 20 mg PO DAILY 01/02/20 01/06/20 Previous Rx's Medication Instructions Recorded Aspirin 162 mg PO DAILY #30 chew 01/05/20 Atorvastatin [Lipitor] 40 mg PO DAILY #30 tab 01/05/20 Clopidogrel [Plavix] 75 mg PO DAILY #30 tab 01/05/20 lisinopriL [Zestril] 10 mg PO DAILY #0 01/05/20 Allergies Allergy/AdvReac Type Severity Reaction Status Date / Time No Known Allergies Allergy Verified 01/06/20 12:42 Review of Systems ROS Statement: Those systems with pertinent positive or pertinent negative responses have been documented in the HPI. ROS Other: All systems not noted in ROS Statement are negative. Past Medical History Past Medical History: CVA/TIA History of Any Multi-Drug Resistant Organisms: None Reported Past Surgical History: No Surgical Hx Reported Past Psychological History: No Psychological Hx Reported Smoking Status: Former smoker Past Alcohol Use History: Rare Past Drug Use History: None Reported General Exam - General Exam Comments Initial Comments: GENERAL: Patient is well-developed and well-nourished. Patient is nontoxic and well-hydrated and is in mild distress. ENT: Neck is soft and supple. No significant lymphadenopathy is noted. Oropharynx is clear. Moist mucous membranes. Neck has full range of motion without eliciting any pain. EYES: The sclera were anicteric and conjunctiva were pink and moist. Extraocular movements were intact and pupils were equal round and reactive to light. Eyelids were unremarkable. PULMONARY: Unlabored respirations. Good breath sounds bilaterally. No audible rales rhonchi or wheezing was noted. CARDIOVASCULAR: There is a regular rate and rhythm without any murmurs gallops or rubs. ABDOMEN: Soft and nontender with normal bowel sounds. SKIN: Skin is clear with no lesions or rashes and otherwise unremarkable. NEUROLOGIC: Patient is alert and oriented x3. Cranial nerves II through XII are grossly intact. Patient has slurred speech. Patient was also very off balance while t rying to maneuver his way into the bed. Symmetrical smile. Patient's finger- nose testing on the left was grossly abnormal. Patient strength of webmaster on the left was 2 out of 5. MUSCULOSKELETAL: Normal extremities with adequate strength and full range of motion. LYMPHATICS: No significant lymphadenopathy is noted PSYCHIATRIC: Normal psychiatric evaluation. Limitations: no limitations Course Vital Signs 01/06/20 01/06/20 01/06/20 10:19 10:35 10:50 Temperature 98 F Pulse Rate 56 L 55 L 80 Respiratory 18 18 18 Rate Blood Pressure 180/82 184/96 182/90 O2 Sat by Pulse 96 98 98 Oximetry 01/06/20 01/06/20 01/06/20 11:05 11:30 12:30 Temperature 98.1 F Pulse Rate 53 L 54 L 60 Respiratory 18 16 18 Rate Blood Pressure 151/83 160/86 158/72 O2 Sat by Pulse 96 96 96 Oximetry 01/06/20 13:30 Temperature 98.1 F Pulse Rate 77 Respiratory 20 Rate Blood Pressure 158/72 O2 Sat by Pulse 99 Oximetry Medical Decision Making - Medical Decision Making I spoke with Dr. Mcclendon and he agreed that the patient did not need a CT angiogram head neck and he wanted the patient transferred to either [place] and if they could not take him to [place]. EKG shows sinus bradycardia 52 bpm AL interval is on a 56 QRS is 86 QT interval 452 QTC is 420. Patient's EKG shows no ST segment elevation or depression. Patient has Q waves in leads [address] of the brain shows no acute abnormality. I spoke with [facility] they accepted a direct admission transfer. - Lab Data Result diagrams: 01/06/20 10:54 01/06/20 10:54 Lab Results 01/06/20 01/06/20 01/06/20 Range/Units 10:54 10:54 10:54 WBC 8.8 (3.8-10.6) k/uL RBC 5.29 (4.30-5.90) m/uL Hgb 15.3 (13.0-17.5) gm/dL Hct 45.6 (39.0-53.0) % MCV 86.0 (80.0-100.0) fL MCH 28.8 (25.0-35.0) pg MCHC 33.5 (31.0-37.0) g/dL RDW 13.3 (11.5-15.5) % Plt Count 167 (150-450) k/uL MPV 7.6 Neutrophils % 78 % Lymphocytes % 13 % Monocytes % 6 % Eosinophils % 1 % Basophils % 0 % Neutrophils # 6.9 (1.3-7.7) k/uL Lymphocytes # 1.2 (1.0-4.8) k/uL Monocytes # 0.5 (0-1.0) k/uL Eosinophils # 0.1 (0-0.7) k/uL Basophils # 0.0 (0-0.2) k/uL PT 10.0 (9.0-12.0) sec INR 1.0 (<1.2) APTT 22.3 (22.0-30.0) sec Sodium 139 (137-145) mmol/L Potassium 3.8 (3.5-5.1) mmol/L Chloride 104 (98-107) mmol/L Carbon Dioxide 26 (22-30) mmol/L Anion Gap 9 mmol/L BUN 14 (9-20) mg/dL Creatinine 0.82 (0.66-1.25) mg/dL Est GFR (CKD-EPI)AfAm >90 (>60 ml/min/1.73 sqM) Est GFR (CKD-EPI)NonAf 87 (>60 ml/min/1.73 sqM) Glucose 114 H (74-99) mg/dL Calcium 9.5 (8.4-10.2) mg/dL Total Bilirubin 0.9 (0.2-1.3) mg/dL AST 45 (17-59) U/L ALT 29 (4-49) U/L Alkaline Phosphatase 74 (38-126) U/L Troponin I (0.000-0.034) ng/mL Total Protein 7.9 (6.3-8.2) g/dL Albumin 4.7 (3.5-5.0) g/dL 01/06/20 Range/Units 10:54 WBC (3.8-10.6) k/uL RBC (4.30-5.90) m/uL Hgb (13.0-17.5) gm/dL Hct (39.0-53.0) % MCV (80.0-100.0) fL MCH (25.0-35.0) pg MCHC (31.0-37.0) g/dL RDW (11.5-15.5) % Plt Count (150-450) k/uL MPV Neutrophils % % Lymphocytes % % Monocytes % % Eosinophils % % Basophils % % Neutrophils # (1.3-7.7) k/uL Lymphocytes # (1.0-4.8) k/uL Monocytes # (0-1.0) k/uL Eosinophils # (0-0.7) k/uL Basophils # (0-0.2) k/uL PT (9.0-12.0) sec INR (<1.2) APTT (22.0-30.0) sec Sodium (137-145) mmol/L Potassium (3.5-5.1) mmol/L Chloride (98-107) mmol/L Carbon Dioxide (22-30) mmol/L Anion Gap mmol/L BUN (9-20) mg/dL Creatinine (0.66-1.25) mg/dL Est GFR (CKD-EPI)AfAm (>60 ml/min/1.73 sqM) Est GFR (CKD-EPI)NonAf (>60 ml/min/1.73 sqM) Glucose (74-99) mg/dL Calcium (8.4-10.2) mg/dL Total Bilirubin (0.2-1.3) mg/dL AST (17-59) U/L ALT (4-49) U/L Alkaline Phosphatase (38-126) U/L Troponin I <0.012 (0.000-0.034) ng/mL Total Protein (6.3-8.2) g/dL Albumin (3.5-5.0) g/dL Critical Care Time Critical Care Time: Yes Total Critical Care Time: 35 Disposition Clinical Impression: Cerebrovascular accident (CVA) Disposition: OTHER INSTITUTION NOT DEFINED Referrals: [facility],Clinic [Primary Care Provider] - 1-2 days Time of Disposition: 12:36 - Out of Hospital Transfer - Req. Specs Out of Hospital Transfer - Requested Specifics: Other Emergency Center ([facility])
[2020-01-06 11:10] LABS: Basophils % (A) 0 %; Eosinophils # (A) 0.1 k/uL (0-0.7); Eosinophils % (A) 1 %; HCT 45.6 % (39.0-53.0); HGB 15.3 gm/dL (13.0-17.5); Lymphocytes # (A) 1.2 k/uL (1.0-4.8); Lymphocytes % (A) 13 %; MCH 28.8 pg (25.0-35.0); MCHC 33.5 g/dL (31.0-37.0); Mean Platelet Volume 7.6; Monocytes # (A) 0.5 k/uL (0-1.0); Monocytes % (A) 6 %; Neutrophils # (A) 6.9 k/uL (1.3-7.7); Neutrophils % (A) 78 %; Platelet Count 167 k/uL (150-450); RBC 5.29 m/uL (4.30-5.90); RDW 13.3 % (11.5-15.5); WBC 8.8 k/uL (3.8-10.6)
--- NOTE | 2020-01-06 11:10 | CT ---
EXAMINATION TYPE: CT brain wo con for TPA DATE OF EXAM: 01/06/2020 COMPARISON: CT brain 01/03/2020 and brain MRI 01/03/2020 HISTORY: Slurred speech, neuro deficit, acute stroke CT DLP: 1134.8 mGycm Automated exposure control for dose reduction was used. Helical acquisition through the brain. FINDINGS: Cerebral vascular calcifications are again noted. Mild asymmetry in the density of the middle cerebra l artery on the left may be technical, similar findings present on prior exam. There is no hemorrhage or hydrocephalus. Periventricular white matter shows patchy low attenuation. Calvarium is intact. Pa ranasal sinuses and mastoid air cells as visualized are normal. IMPRESSION: PATIENT WITH KNOWN INFARCT DEMONSTRATED ON PRIOR BRAIN MRI. AGE-RELATED CHANGES OF ATROPHY AND PRO BABLE CHRONIC SMALL VESSEL ISCHEMIA, ADDITIONAL FINDINGS ABOVE.
[2020-01-06 11:29] LABS: Partial Thromboplastin Time 22.3 sec (22.0-30.0)
[2020-01-06 11:32] LABS: ALT 29 U/L (4-49); AST 45 U/L (17-59); African American GFR (CKD) >90 (>60 ml/min/1.73 sqM); Albumin 4.7 g/dL (3.5-5.0); Alkaline Phosphatase 74 U/L (38-126); Anion Gap 9 mmol/L; Blood Urea Nitrogen 14 mg/dL (9-20); Calcium 9.5 mg/dL (8.4-10.2); Carbon Dioxide 26 mmol/L (22-30); Chloride 104 mmol/L (98-107); Glucose 114 mg/dL (74-99); Non-African American GFR(CKD) 87 (>60 ml/min/1.73 sqM); Potassium 3.8 mmol/L (3.5-5.1); Sodium 139 mmol/L (137-145); Total Bilirubin 0.9 mg/dL (0.2-1.3); Total Protein 7.9 g/dL (6.3-8.2)
[2020-01-06 13:12] VITALS: TEMP 98.1
[2020-01-06 13:15] VITALS: BP 158/72
--- NOTE | 2020-01-06 13:38 | XR ---
EXAMINATION TYPE: XR chest 1V DATE OF EXAM: 01/06/2020 COMPARISON: Prior chest x-ray 01/02/2020 HISTORY: Altered mental status TECHNIQUE: Single frontal view of the chest is obtained. FINDINGS: There is no focal air space opacity, pleural effusion, or pneumothorax seen. The cardiac silhouette size is within normal limits. There is eventration of the right hemidiaphragm. The osseou s structures are intact. IMPRESSION: No acute process.
[2020-01-06 14:40] VITALS: PULSE 77; RESP 20
== END 2020-01-06 13:35 | disposition other institution (70) ==
LOC: EC 10:11
DX: I63.9 Cerebral infarction, unspecified (principal); R47.81 Slurred speech; R53.1 Weakness; R00.1 Bradycardia, unspecified; Z87.891 Personal history of nicotine dependence
CPT/HCPCS: 36415; 70450; 71045; 80053; 84484; 85025; 85610; 85730; 93005; 99291

== ENCOUNTER → 2020-07-09 | Outpatient (CLI) | payer MEDICARE, OTHER ==
[2020-07-09 13:26] LABS: African American GFR (CKD) >90 (>60 ml/min/1.73 sqM); Blood Urea Nitrogen 14 mg/dL (9-20); Non-African American GFR(CKD) 86 (>60 ml/min/1.73 sqM)
--- NOTE | 2020-07-09 14:55 | CT ---
EXAMINATION TYPE: CT angio head DATE OF EXAM: 07/09/2020 2:00 PM COMPARISON: CTA head January 02, 2020 HISTORY: Occlusion and stenosis. History of stroke. CT DLP: 1143.5 mGycm Automated exposure control for dose reduction was used. TECHNIQUE: Performed without and with IV Contrast, patient injected with 100 mL of Isovue 370. 3D reconstructed images are created on an independent workstation and reviewed.. FINDINGS: Noncontrast CT shows no acute intracranial hemorrhage or midline shift. Mild ventricular and sulcal p rominence redemonstrated. Mild/moderate low attenuation scattered throughout the white matter. There is codominant vertebrobasilar system. The vertebral arteries are patent to basilar junction. Hypoplastic bilateral posterior communicating arteries redemonstrated. No new significant stenosis or aneurysm. Stable smaller caliber posterior ce rebral arteries bilaterally. Anterior circulation shows patent anterior communicating artery filling right A2 segment. There is hypoplastic right A1 segment. Normal variant. No new significant focal beth nosis or aneurysm identified. IMPRESSION: No new significant focal stenosis or aneurysm at level of lower [place] of [place]. No significan t change from prior.
== END | disposition home or self-care (01) ==
LOC: RADCTMAIN 12:39
PROVIDERS: ATTEND Psychiatry & Neurology Neurology
DX: Z86.73 Personal history of transient ischemic attack (TIA), and cerebral infarction without residual deficits (principal)
CPT/HCPCS: 82565; 84520; 70496; 36415; Q9967

== ENCOUNTER 2023-02-04 14:33 | Emergency (ER) | payer OTHER ==
[2023-02-04 15:11] VITALS: BP 146/84; PULSE 72; RESP 16; TEMP 98.8
--- NOTE | 2023-02-04 15:18 | ED ---
General Adult HPI - General Chief complaint: Neuro Symptoms/Deficit Stated complaint: confusion/dizziness Time Seen by Provider: 02/04/23 15:15 Source: patient, RN notes reviewed Mode of arrival: ambulatory Limitations: no limitations - History of Present Illness Initial comments: This is a 77-year-old male who presents to the emergency department for ne urological concerns. Reports having headaches, dizziness, and confusion a couple of days ago. He had a stroke in 2019, and states that his PCP recommended he have a computed tomography scan to evaluate for signs of another stroke. MD Complaint: Headache, dizziness, confusion - Related Data Home Medications Medication Instructions Recorded Confirmed Carboxymethylcellulose Sodium 1 drop BOTH EYES QID PRN 01/02/20 01/06/20 [Refresh Tears] Cholecalciferol [Vitamin D3 (25 1,000 unit PO DAILY 01/02/20 01/06/20 Mcg = 1000 Iu)] Omeprazole 20 mg PO DAILY 01/02/20 01/06/20 Previous Rx's Medication Instructions Recorded Aspirin 162 mg PO DAILY #30 chew 01/05/20 Atorvastatin [Lipitor] 40 mg PO DAILY #30 tab 01/05/20 Clopidogrel [Plavix] 75 mg PO DAILY #30 tab 01/05/20 lisinopriL [Zestril] 10 mg PO DAILY #0 01/05/20 Allergies Allergy/AdvReac Type Severity Reaction Status Date / Time No Known Allergies Allergy Verified 02/04/23 15:07 Review of Systems ROS Statement: Those systems with pertinent positive or pertinent negative responses have been documented in the HPI. ROS Other: All systems not noted in ROS Statement are negative. Past Medical History Past Medical History: CVA/TIA, GERD/Reflux, Hypertension, Thyroid Disorder History of Any Multi-Drug Resistant Organisms: None Reported Past Surgical History: No Surgical Hx Reported Past Psychological History: No Psychological Hx Reported Smoking Status: Former smoker Past Alcohol Use History: Rare Past Drug Use History: None Reported General Exam - General Exam Comments Initial Comments: Visual Physical Exam Vital signs reviewed General: Well-appearing, nontoxic, no acute distress. Head: Normocephalic, atraumatic Eyes: PERRLA, EOMI ENT: Airway patent Chest: Nonlabored breathing Skin: No visual rash, normal skin tone Neuro: Alert and oriented 3 Musculoskeletal: No gross abnormalities Limitations: no limitations Course Vital Signs 02/04/23 15:02 Temperature 98.8 F Pulse Rate 72 Respiratory 16 Rate Blood Pressure 146/84 O2 Sat by Pulse 96 Oximetry Medical Decision Making - Medical Decision Making I performed the QuickNote portion of this chart. Signed Rocio Reyes PA-C. Patient eloped from the emergency department prior to completion and review of the ordered testing. - Lab Data Result diagrams: 02/04/23 15:10 02/04/23 15:10 Lab Results 02/04/23 02/04/23 02/04/23 Range/Units 15:10 15:10 15:10 WBC 7.4 (3.8-10.6) k/uL RBC 4.50 (4.30-5.90) m/uL Hgb 13.2 (13.0-17.5) gm/dL Hct 39.7 (39.0-53.0) % MCV 88.3 (80.0-100.0) fL MCH 29.4 (25.0-35.0) pg MCHC 33.3 (31.0-37.0) g/dL RDW 13.8 (11.5-15.5) % Plt Count 151 (150-450) k/uL MPV 8.0 Neutrophils % 78 % Lymphocytes % 14 % Monocytes % 5 % Eosinophils % 2 % Basophils % 1 % Neutrophils # 5.7 (1.3-7.7) k/uL Lymphocytes # 1.0 (1.0-4.8) k/uL Monocytes # 0.4 (0-1.0) k/uL Eosinophils # 0.1 (0-0.7) k/uL Basophils # 0.0 (0-0.2) k/uL PT 11.0 (10.0-12.5) sec INR 1.0 (<1.2) APTT 22.2 (22.0-30.0) sec Sodium 141 (137-145) mmol/L Potassium 3.8 (3.5-5.1) mmol/L Chloride 103 (98-107) mmol/L Carbon Dioxide 25 (22-30) mmol/L Anion Gap 13 mmol/L BUN 15 (9-20) mg/dL Creatinine 0.79 (0.66-1.25) mg/dL Est GFR (CKD-EPI)AfAm >90 (>60 ml/min/1.73 sqM) Est GFR (CKD-EPI)NonAf 87 (>60 ml/min/1.73 sqM) Glucose 132 H (74-99) mg/dL Calcium 9.1 (8.4-10.2) mg/dL Total Bilirubin 0.5 (0.2-1.3) mg/dL AST 31 (17-59) U/L ALT 19 (4-49) U/L Alkaline Phosphatase 83 (38-126) U/L Creatine Kinase 181 H (55-170) U/L Troponin I (0.000-0.034) ng/mL Total Protein 7.1 (6.3-8.2) g/dL Albumin 4.3 (3.5-5.0) g/dL 02/04/23 Range/Units 15:10 WBC (3.8-10.6) k/uL RBC (4.30-5.90) m/uL Hgb (13.0-17.5) gm/dL Hct (39.0-53.0) % MCV (80.0-100.0) fL MCH (25.0-35.0) pg MCHC (31.0-37.0) g/dL RDW (11.5-15.5) % Plt Count (150-450) k/uL MPV Neutrophils % % Lymphocytes % % Monocytes % % Eosinophils % % Basophils % % Neutrophils # (1.3-7.7) k/uL Lymphocytes # (1.0-4.8) k/uL Monocytes # (0-1.0) k/uL Eosinophils # (0-0.7) k/uL Basophils # (0-0.2) k/uL PT (10.0-12.5) sec INR (<1.2) APTT (22.0-30.0) sec Sodium (137-145) mmol/L Potassium (3.5-5.1) mmol/L Chloride (98-107) mmol/L Carbon Dioxide (22-30) mmol/L Anion Gap mmol/L BUN (9-20) mg/dL Creatinine (0.66-1.25) mg/dL Est GFR (CKD-EPI)AfAm (>60 ml/min/1.73 sqM) Est GFR (CKD-EPI)NonAf (>60 ml/min/1.73 sqM) Glucose (74-99) mg/dL Calcium (8.4-10.2) mg/dL Total Bilirubin (0.2-1.3) mg/dL AST (17-59) U/L ALT (4-49) U/L Alkaline Phosphatase (38-126) U/L Creatine Kinase (55-170) U/L Troponin I <0.012 (0.000-0.034) ng/mL Total Protein (6.3-8.2) g/dL Albumin (3.5-5.0) g/dL Disposition Clinical Impression: Dizziness, Headache Disposition: LEFT AGAINST MEDICAL ADVICE Referrals: None,Stated [Primary Care Provider] - 1-2 days
[2023-02-04 15:39] LABS: Basophils % (A) 1 %; Eosinophils # (A) 0.1 k/uL (0-0.7); Eosinophils % (A) 2 %; HCT 39.7 % (39.0-53.0); HGB 13.2 gm/dL (13.0-17.5); Lymphocytes % (A) 14 %; MCH 29.4 pg (25.0-35.0); MCHC 33.3 g/dL (31.0-37.0); MCV 88.3 fL (80.0-100.0); Monocytes # (A) 0.4 k/uL (0-1.0); Monocytes % (A) 5 %; Neutrophils # (A) 5.7 k/uL (1.3-7.7); Neutrophils % (A) 78 %; Platelet Count 151 k/uL (150-450); RDW 13.8 % (11.5-15.5); WBC 7.4 k/uL (3.8-10.6)
[2023-02-04 15:54] LABS: ALT 19 U/L (4-49); AST 31 U/L (17-59); African American GFR (CKD) >90 (>60 ml/min/1.73 sqM); Albumin 4.3 g/dL (3.5-5.0); Alkaline Phosphatase 83 U/L (38-126); Anion Gap 13 mmol/L; Blood Urea Nitrogen 15 mg/dL (9-20); Calcium 9.1 mg/dL (8.4-10.2); Carbon Dioxide 25 mmol/L (22-30); Chloride 103 mmol/L (98-107); Creatine Kinase 181 U/L (55-170); Glucose 132 mg/dL (74-99); Non-African American GFR(CKD) 87 (>60 ml/min/1.73 sqM); Potassium 3.8 mmol/L (3.5-5.1); Sodium 141 mmol/L (137-145); Total Bilirubin 0.5 mg/dL (0.2-1.3); Total Protein 7.1 g/dL (6.3-8.2)
[2023-02-04 16:09] LABS: Partial Thromboplastin Time 22.2 sec (22.0-30.0)
--- NOTE | 2023-02-04 16:33 | XR ---
EXAMINATION TYPE: XR chest 2V DATE OF EXAM: 02/04/2023 4:28 PM CLINICAL INDICATION:Male, 77 years old with history of altered mental status; [facility] COMPARISON: Chest radiographs from 01/06/2020 TECHNIQUE: XR chest 2V Frontal and lateral views of the chest. FINDINGS: Lungs/Pleura: There is no evidence of pleural effusion, focal consolidation, or pneumothorax. Pulmonary vascularity: Unremarkable. Heart/mediastinum: Cardiomediastinal silhouette is unremarkable. Musculoskeletal: No acute osseous pathology. IMPRESSION: No acute cardiopulmonary disease/process.
== END 2023-02-04 17:28 | disposition left against medical advice (07) ==
LOC: EC 14:33
DX: R42 Dizziness and giddiness (principal); R51.9 Headache, unspecified; I10 Essential (primary) hypertension; K21.9 Gastro-esophageal reflux disease without esophagitis; Z53.29 Procedure and treatment not carried out because of patient's decision for other reasons; Z79.899 Other long term (current) drug therapy; Z86.73 Personal history of transient ischemic attack (TIA), and cerebral infarction without residual deficits; Z87.891 Personal history of nicotine dependence
CPT/HCPCS: 36415; 71046; 80053; 82550; 84484; 85025; 85610; 85730; 93005; 99284